=== PATIENT | male | born 2000 | race Caucasian/White ===

== ENCOUNTER 2018-12-18 00:38 | Emergency (ER) | payer OTHER ==
--- NOTE | 2018-12-18 00:56 | EDPHY ---
H & P Stated Complaint: scratched by cat this morning, felling dizzy, disoriented Time Seen by Provider: 12/18/18 00:55 HPI/ROS: HPI CHIEF COMPLAINT: Cat scratch right digit. HISTORY OF PRESENT ILLNESS: This is a 18-year-old male, presents emergency room stating he feels unwell. Early yesterday morning the patient got scratched by a cat to his right hand, 5th digit. Patient states since then he has felt somewhat anxious, lightheadedness, dizziness, and unwell. He has had no fever. He states he went online and red about this and thought maybe he has cat scratch disease. Again it has been less than 24 hr. No fever. He has cat scratched him on the right 5th digit. Palmar side. He did not have a cat bite. The patient denies any chest pain, shortness of breath or fever. However does state he feels very lightheaded. Feels unwell. Past Medical History: Denies medical history Past Surgical History: Denies surgical history Social History: Denies drugs alcohol tobacco. Family History: Noncontributory ROS REVIEW OF SYSTEMS: 10 Systems were reviewed and negative with the exception of the elements mentioned in the history of present illness. Exam Constitutional triage nursing summary reviewed, vital signs reviewed, awake/ alert. Eyes normal conjunctivae and sclera, EOMI, PERRLA. HENT normal inspection, atraumatic, moist mucus membranes, no epistaxis, neck supple/ no meningismus, no raccoon eyes. Respiratory clear to auscultation bilaterally, normal breath sounds, no respiratory distress, no wheezing. Cardiovascular rate normal, regular rhythm, no murmur, no edema, distal pulses normal. Gastrointestinal soft, non-tender, no rebound, no guarding, normal bowel sounds, no distension, no pulsatile mass. Genitourinary no CVA tenderness. Musculoskeletal no midline vertebral tenderness, full range of motion, no calf swelling, no tenderness of extremities, no meningismus, good pulses, neurovascularly intact. Skin pink, warm, & dry, no rash, skin atraumatic. Neurologic awake, alert and oriented x 3, AAOx3, moves all 4 extremities equally, motor intact, sensory intact, CN II-XII intact, normal cerebellar, normal vision, normal speech. Psychiatric normal mood/affect. Heme/Lymph/Immune no lymphadenopathy. Differential Diagnosis: Includes but is not limited to in a particular order electrolyte disturbance, dehydration, cardiac arrhythmia, cat scratch disease, cat scratch fever, sepsis, bacteremia Medical Decision Making: Plan for this patient IV established basic labs, will treat for cat scratch disease. There is no significant swelling or cellulitis visible on the right 5th digit. The right 5th digit has a mild scratch to it mild redness around it. No sausage digit no evidence of flexor tenosynovitis. No open wound. Patient's right hand is neurovascularly intact. There is no palpable cord, no lymphadenitis, no lymphadenopathy. Re-evaluation: EKG interpretation by me on record in [employer] system. Impression time of EKG 2:00 a.m., sinus rhythm rate of 59, early re-lovely pattern. Otherwise no acute ischemia. Troponin negative. Labs reviewed unremarkable. Patient re-evaluated at 5:21 a.m. Resting comfortably no acute distress. Denies any chest pain or shortness of breath. States he is feeling better after IV fluids reassurance that his labs are okay. Patient has been given a dose of azithromycin. For cat scratch. Additionally prescription be provided. Additionally the patient understands to return to the emergency room if he has any worsening symptoms includes fever, worsening pain or swelling or redness of his hand. Patient at 5:22 a.m. Re-evaluated resting comfortably without any complaints and is requesting discharge home. We discussed return precautions he understands. Source: Patient - Personal History Current Tetanus Diphtheria and Acellular Pertussis (TDAP): Yes - Medical/Surgical History Hx Asthma: No Hx Chronic Respiratory Disease: No Hx Diabetes: No Hx Cardiac Disease: No Hx Renal Disease: No Hx Cirrhosis: No Hx Alcoholism: No Hx HIV/AIDS: No Hx Splenectomy or Spleen Trauma: No - Social History Smoking Status: Never smoked Constitutional: Initial Vital Signs Temperature (C) 36.9 C 12/18/18 00:41 Heart Rate 89 12/18/18 00:41 Respiratory Rate 18 12/18/18 00:41 Blood Pressure 154/84 H 12/18/18 00:41 O2 Sat (%) 99 12/18/18 00:41 O2 Delivery Mode Room Air Allergies/Adverse Reactions: No Known Allergies Allergy (Unverified 12/18/18 00:41) Home Medications: Medication Instructions Recorded Azithromycin [Zithromax] 250 mg PO DAILY #6 tab 12/18/18 Medical Decision Making - Data Points Laboratory Results: Laboratory Results 12/18/18 01:50 12/18/18 01:50 12/18/18 12/18/18 12/18/18 01:59 01:50 01:50 WBC 9.58 10^3/uL H 10^3/uL (3.80-9.50) RBC 5.13 10^6/uL 10^6/uL (4.40-6.38) Hgb 15.3 g/dL g/dL (13.7-17.5) Hct 43.3 % % (40.0-51.0) MCV 84.4 fL fL (81.5-99.8) MCH 29.8 pg pg (27.9-34.1) MCHC 35.3 g/dL g/dL (32.4-36.7) RDW 11.7 % % (11.5-15.2) Plt Count 235 10^3/uL 10^3/uL (150-400) MPV 9.2 fL fL (8.7-11.7) Neut % (Auto) 48.8 % % (39.3-74.2) Lymph % (Auto) 39.6 % % (15.0-45.0) [place] % (Auto) 8.7 % % (4.5-13.0) Eos % (Auto) 1.7 % % (0.6-7.6) Baso % (Auto) 0.9 % % (0.3-1.7) Nucleat RBC Rel Count 0.0 % % (0.0-0.2) Absolute Neuts (auto) 4.68 10^3/uL 10^3/uL (1.70-6.50) Absolute Lymphs (auto) 3.79 10^3/uL H 10^3/uL (1.00-3.00) Absolute Monos (auto) 0.83 10^3/uL H 10^3/uL (0.30-0.80) Absolute Eos (auto) 0.16 10^3/uL 10^3/uL (0.03-0.40) Absolute Basos (auto) 0.09 10^3/uL 10^3/uL (0.02-0.10) Absolute Nucleated RBC 0.00 10^3/uL 10^3/uL (0-0.01) Immature Gran % 0.3 % % (0.0-1.1) Immature Gran # 0.03 10^3/uL 10^3/uL (0.00-0.10) Sodium 138 mEq/L mEq/L (135-145) Potassium 3.9 mEq/L mEq/L (3.5-5.2) Chloride 103 mEq/L mEq/L (97-110) Carbon Dioxide 24 mEq/l mEq/l (22-31) Anion Gap 11 mEq/L mEq/L (6-14) BUN 14 mg/dL mg/dL (7-23) Creatinine 0.8 mg/dL mg/dL (0.7-1.3) Estimated GFR > 60 Glucose 104 mg/dL H mg/dL (70-100) Calcium 9.3 mg/dL mg/dL (8.5-10.4) Magnesium 1.9 mg/dL mg/dL (1.6-2.3) POC Troponin I 0.00 ng/mL ng/mL (0.00-0.08) Medications Given: Discontinued Medications Azithromycin (Zithromax) 500 mg PO EDNOW ONE PRN Reason: Protocol Stop: 12/18/18 02:38 Last Admin: 12/18/18 02:56 Dose: 500 mg Sodium Chloride (Ns) 1,000 mls @ 0 mls/hr IV EDNOW ONE; Wide Open PRN Reason: Protocol Stop: 12/18/18 01:07 Last Admin: 12/18/18 01:49 Dose: 1,000 mls Point of Care Test Results: Chemistry 12/18/18 01:59 POC Troponin I 0.00 ng/mL ng/mL (0.00-0.08) Departure - Departure Disposition: Home, Routine, Self-Care Clinical Impression: Cat scratch Condition: Good Instructions: Azithromycin (By mouth), Cat Scratch Disease (ED) Additional Instructions: 1. Stay well-hydrated drink lots of fluids. 2. Rest. 3. Antibiotics as prescribed 4. Return emergency room if worsening pain, swelling, fever, redness, not doing well. Referrals: DIDI PIZANO [Other] - As per Instructions Prescriptions: Azithromycin [Zithromax] 250 mg PO DAILY #6 tab
[2018-12-18] MEDS ORDERED: NS 1,000 ML IV ONE (01:06)
[2018-12-18 02:02] LABS: PLATELET COUNT 235 10^3/uL (150-400)
[2018-12-18] MEDS ORDERED: AZITHROMYCIN 250 MG TAB PO ONE (02:37)
[2018-12-18 04:00] VITALS: BP 136/66
--- NOTE | 2018-12-18 07:23 | CPEKG ---
Test Reason : OPEN Blood Pressure : / mmHG Vent. Rate : 059 BPM Atrial Rate : 060 BPM P-R Int : 134 ms QRS Dur : 092 ms QT Int : 433 ms P-R-T Axes : 073 062 021 degrees QTc Int : 429 ms Sinus rhythm Probable left ventricular hypertrophy ST elev, probable normal early repol pattern Confirmed by Fan Christine ([id number]) on 12/18/2018 7:22:39 AM Referred By: Fan Christine Confirmed By:Fan Christine
== END 2018-12-18 05:47 | disposition home or self-care (01) ==
DX: S60.416A Abrasion of right little finger, initial encounter (principal); W55.03XA Scratched by cat, initial encounter; E86.9 Volume depletion, unspecified
CPT/HCPCS: 84484-ER